=== PATIENT | female | born 1950 | race Caucasian/White ===

== ENCOUNTER 2018-03-13 13:17 | Inpatient (IN) | payer MEDICARE, OTHER ==
[~2018-03-13] VITALS: Ht 165.1 cm; Wt 50.6 kg
[2018-03-13 14:28] LABS: Basophils # (auto) 0.1 uL; Basophils % (auto) 0.7 % (0.0-2.0); Eosinophils # (auto) 0.2 uL; Eosinophils % (auto) 1.4 % (0.0-7.0); Hematocrit 30.8 % (36.0-46.0); Hemoglobin 9.9 g/dL (12.2-16.2); Lymphocytes # (auto) 1.3 uL; Mean Corpuscular Hemoglobin 28.2 pg (28.0-32.0); Mean Corpuscular Hgb Conc. 32.3 g/dL (32.0-36.0); Mean Corpuscular Volume 87.4 fL (80.0-100.0); Monocytes # (auto) 0.7 uL; Monocytes % (auto) 6.3 % (0.0-12.0); Neutrophils # (auto) 8.5 uL; Neutrophils % (auto) 79.6 % (37.0-80.0); Platelet Count (auto) 356 10^3/uL (140-450); Red Blood Cells 3.52 10^6/uL (4.0-5.20); Red Cell Distribution Width 16.5 % (11.8-14.3); White Blood Cell 10.7 10^3/uL (4.4-10.8)
[2018-03-13 14:58] LABS: Alanine Aminotransferase 9 U/L (13-56); Albumin 2.7 g/dL (3.4-5.0); Alkaline Phosphatase 96 U/L (45-117); Anion Gap 5 (5-15); Aspartate Aminotransferase 8 U/L (15-37); BUN/Creatinine Ratio 8.1; Bilirubin, Total 0.3 mg/dL (0.2-1.0); Blood Urea Nitrogen 25 mg/dL (7-18); Calcium 8.6 mg/dL (8.5-10.1); Carbon Dioxide 24 mmol/L (21-32); Chloride 106 mmol/L (98-107); GFR African American 19 mL/min; GFR Non-African American 16 mL/min; Glucose 104 mg/dL (74-106); Potassium 4.8 mmol/L (3.5-5.1); Sodium 135 mmol/L (136-145); Total Protein 6.8 g/dL (6.4-8.2)
[2018-03-13] MEDS ORDERED: ONDANSETRON HCL 4 MG/2 ML VIAL IV ONE ×2 (15:30→20:15)
[2018-03-13] MEDS ORDERED: MORPHINE SULFATE 4 MG/ML SYR/VIAL IV ONE ×2 (15:30→20:15)
[2018-03-13 15:55] LABS: Urine Bacteria NONE SEEN /hpf (None Seen); Urine Blood Negative /uL (Negative); Urine Specific Gravity 1.009 (1.001-1.035); Urine WBC 81 /hpf (0 - 5)
[2018-03-13] MEDS ORDERED: cefTRIAXone 1GM/10ml IVPUSH 10 ML IV ONE (16:00)
[2018-03-13] MEDS ORDERED: AZITHROMYCIN 500MG/ 250ML 250 ML IV ONE (16:00)
[2018-03-13] MEDS ORDERED: traZODone HCL 50 MG TAB PO ONE (23:00)
[2018-03-13] MEDS ORDERED: ACETAMINOPHEN 500 MG TAB PO PRN (23:00)
[2018-03-14] VITALS (7 sets, daily range): BP systolic 106–148; BP diastolic 60–86
[2018-03-14 05:51] LABS: Basophils # (auto) 0.1 uL; Basophils % (auto) 1.2 % (0.0-2.0); Eosinophils # (auto) 0.2 uL; Eosinophils % (auto) 2.4 % (0.0-7.0); Hematocrit 26.9 % (36.0-46.0); Lymphocytes # (auto) 1.1 uL; Mean Corpuscular Hemoglobin 29.5 pg (28.0-32.0); Mean Corpuscular Hgb Conc. 33.4 g/dL (32.0-36.0); Mean Corpuscular Volume 88.4 fL (80.0-100.0); Monocytes # (auto) 0.6 uL; Monocytes % (auto) 8.3 % (0.0-12.0); Neutrophils # (auto) 5.6 uL; Neutrophils % (auto) 74.1 % (37.0-80.0); Platelet Count (auto) 305 10^3/uL (140-450); Red Blood Cells 3.05 10^6/uL (4.0-5.20); Red Cell Distribution Width 16.3 % (11.8-14.3); White Blood Cell 7.6 10^3/uL (4.4-10.8)
[2018-03-14] MEDS: LEVOTHYROXINE SODIUM 25 MCG TAB PO SCH (06:29)
[2018-03-14 06:57] LABS: BUN/Creatinine Ratio 7.2; Calcium 8.6 mg/dL (8.5-10.1); Potassium 4.4 mmol/L (3.5-5.1)
[2018-03-14] MEDS ORDERED: HYDROcodone-ACET 5/325MG TAB PO PRN (08:30)
[2018-03-14] MEDS: FAMOTIDINE 20 MG TAB PO SCH (08:49)
[2018-03-14] MEDS: CITALOPRAM HYDROBR 20 MG TAB PO SCH (08:50)
[2018-03-14] MEDS ORDERED: PNEUMOCOCCAL VACC POLYS 25 MCG/0.5 ML VIAL IM ONE (10:00)
[2018-03-14] MEDS ORDERED: OME20GT PO ×2 (11:54)
[2018-03-14] MEDS ORDERED: FURO40TA4 PO ×2 (11:54)
[2018-03-14] MEDS ORDERED: BIS10RS PR ×2 (11:54)
[2018-03-14] MEDS ORDERED: CITA-77 PO ×2 (11:54)
[2018-03-14] MEDS ORDERED: TRAZ150T79 PO ×2 (11:54)
[2018-03-14] MEDS ORDERED: CLON0.1T PO ×2 (11:54)
[2018-03-14] MEDS ORDERED: METO25TA5 PO ×2 (11:54)
[2018-03-14] MEDS ORDERED: AML5T PO ×2 (11:54)
[2018-03-14] MEDS ORDERED: POTA20TA53 PO ×2 (11:54)
[2018-03-14] MEDS ORDERED: CALC667C5 PO ×2 (11:54)
[2018-03-14] MEDS ORDERED: CHOL20007 PO ×2 (11:54)
[2018-03-14] MEDS ORDERED: ONDA4TAB5 PO ×2 (11:54)
[2018-03-14] MEDS ORDERED: LEVO25TA6 PO ×2 (11:54)
[2018-03-14] MEDS ORDERED: ROPI0.5T PO ×2 (11:54)
[2018-03-14] MEDS ORDERED: ACET-1304 PO ×2 (11:54)
[2018-03-14 12:03] LABS: % Iron Saturation 7.7 % (15-50)
[2018-03-14] MEDS: MORPHINE SULFATE 4 MG/ML SYR/VIAL IV PRN (13:34)
[2018-03-14] MEDS: AZITHROMYCIN 500MG/ 250ML 250 ML IV SCH (15:54)
[2018-03-14] MEDS: cefTRIAXone 1GM/10ml IVPUSH 10 ML IV SCH (15:54)
[2018-03-14] MEDS: FERROUS SULFATE 325 MG TAB PO SCH (17:09)
[2018-03-14] MEDS: traZODone HCL 50 MG TAB PO SCH (21:01)
[2018-03-14] MEDS ORDERED: ROPINIROLE 1 MG PO SCH (22:00)
[2018-03-15] MEDS: MORPHINE SULFATE 4 MG/ML SYR/VIAL IV PRN ×3 (02:26→15:00)
[2018-03-15 05:19] VITALS: BP 132/72
[2018-03-15 05:57] LABS: Basophils # (auto) 0.1 uL; Eosinophils # (auto) 0.2 uL; Eosinophils % (auto) 2.5 % (0.0-7.0); Hematocrit 27.3 % (36.0-46.0); Hemoglobin 9.1 g/dL (12.2-16.2); Lymphocytes % (auto) 14.5 % (10.0-50.0); Mean Corpuscular Hemoglobin 29.6 pg (28.0-32.0); Mean Corpuscular Hgb Conc. 33.5 g/dL (32.0-36.0); Mean Corpuscular Volume 88.2 fL (80.0-100.0); Monocytes # (auto) 0.6 uL; Monocytes % (auto) 8.8 % (0.0-12.0); Neutrophils # (auto) 4.9 uL; Neutrophils % (auto) 73.2 % (37.0-80.0); Nucleated Red Blood Cells % 0.1 %; Platelet Count (auto) 331 10^3/uL (140-450); Red Blood Cells 3.09 10^6/uL (4.0-5.20); Red Cell Distribution Width 16.9 % (11.8-14.3); White Blood Cell 6.7 10^3/uL (4.4-10.8)
[2018-03-15] MEDS: LEVOTHYROXINE SODIUM 25 MCG TAB PO SCH (06:19)
[2018-03-15 06:34] LABS: Albumin 2.5 g/dL (3.4-5.0); BUN/Creatinine Ratio 6.8; Bilirubin, Total 0.3 mg/dL (0.2-1.0); Calcium 8.6 mg/dL (8.5-10.1); Magnesium 2.2 mg/dL (1.6-2.6); Potassium 4.4 mmol/L (3.5-5.1); Total Protein 6.6 g/dL (6.4-8.2)
[2018-03-15 08:00] VITALS: BP 131/73
[2018-03-15] MEDS: FERROUS SULFATE 325 MG TAB PO SCH ×2 (08:16→17:31)
[2018-03-15] MEDS: FAMOTIDINE 20 MG TAB PO SCH (09:12)
[2018-03-15] MEDS: CITALOPRAM HYDROBR 20 MG TAB PO SCH (09:12)
[2018-03-15 09:26] VITALS: BP 131/73
[2018-03-15 12:27] VITALS: BP 107/53
[2018-03-15] MEDS: ROPINIROLE 1 MG PO SCH (14:42)
[2018-03-15] MEDS: cefTRIAXone 1GM/10ml IVPUSH 10 ML IV SCH (15:54)
[2018-03-15] MEDS: AZITHROMYCIN 500MG/ 250ML 250 ML IV SCH (15:54)
[2018-03-15 16:46] VITALS: BP 111/61
[2018-03-15] MEDS: traZODone HCL 50 MG TAB PO SCH (21:50)
[2018-03-15] MEDS: traMADol HCL 50 MG TAB PO PRN (21:50)
[2018-03-15 22:00] VITALS: BP 132/72
[2018-03-16 04:47] VITALS: BP 103/50
[2018-03-16] MEDS: traMADol HCL 50 MG TAB PO PRN (05:10)
[2018-03-16] MEDS: MORPHINE SULFATE 4 MG/ML SYR/VIAL IV PRN ×2 (05:17→11:53)
[2018-03-16] MEDS: LEVOTHYROXINE SODIUM 25 MCG TAB PO SCH (06:49)
[2018-03-16 08:00] VITALS: BP 121/61
[2018-03-16] MEDS: FERROUS SULFATE 325 MG TAB PO SCH (08:40)
[2018-03-16 09:52] VITALS: BP 102/56
[2018-03-16] MEDS: CITALOPRAM HYDROBR 20 MG TAB PO SCH (11:24)
[2018-03-16] MEDS: FAMOTIDINE 20 MG TAB PO SCH (11:24)
[2018-03-16] MEDS: ROPINIROLE 1 MG PO SCH (11:53)
[2018-03-16] MEDS ORDERED: SODIUM FERR GLUC 62.5MG/5ML 125 MG in SODIUM CHL 0.9% 100 ML IV SCH (12:00)
[2018-03-16 13:02] VITALS: BP 121/61
[2018-03-16 13:13] VITALS: BP 121/61
[2018-03-17] MEDS ORDERED: SODIUM CHL 0.9% 1000 ML BAG XX ONE (09:00)
[2018-03-17] MEDS ORDERED: EPOETIN ALFA 10,000 UNIT/1 ML VIAL IV ONE (09:00)
== END 2018-03-16 17:30 | disposition home or self-care (01) | DRG 682 ==
LOC: ER 13:17 → OVERFLOW 13:18 → WEST WING 23:20
PROVIDERS: ADMIT Nurse Practitioner Family; ATTEND Internal Medicine
DX: N17.9 Acute kidney failure, unspecified (principal); G93.41 Metabolic encephalopathy; J18.1 Lobar pneumonia, unspecified organism; N30.00 Acute cystitis without hematuria; E44.0 Moderate protein-calorie malnutrition; I12.0 Hypertensive chronic kidney disease with stage 5 chronic kidney disease or end stage renal disease; F11.20 Opioid dependence, uncomplicated; Z68.1 Body mass index [BMI] 19.9 or less, adult; N18.6 End stage renal disease; D50.9 Iron deficiency anemia, unspecified; G43.909 Migraine, unspecified, not intractable, without status migrainosus; D63.1 Anemia in chronic kidney disease; G89.29 Other chronic pain; Z88.8 Allergy status to other drugs, medicaments and biological substances; Z99.2 Dependence on renal dialysis; Z91.018 Allergy to other foods; Z82.49 Family history of ischemic heart disease and other diseases of the circulatory system; Z87.891 Personal history of nicotine dependence; Z98.1 Arthrodesis status; Z87.01 Personal history of pneumonia (recurrent); Z23 Encounter for immunization
CPT/HCPCS: 36415; 70450; 71045; 71250; 74176; 76775; 80048; 80053; 81001; 82306; 82728; 83540; 83550; 83605; 83735; 83970; 84100; 84443; 84484; 85025; 86850; 86900; 86901; 87040; 87081; 87086; 93005; 94761; 96365; 96366; 96375; 96376; J0696; J2405

== ENCOUNTER 2018-03-18 01:21 | Emergency (ER) | payer OTHER ==
[~2018-03-18] VITALS: Ht 154.9 cm; Wt 53.5 kg
[~2018-03-18 01:21] MED LIST: ACET-1304 PO; AML5T PO; BIS10RS PR; CALC667C5 PO; CHOL20007 PO; CITA-77 PO; CLON0.1T PO; FURO40TA4 PO; LEVO25TA6 PO; METO25TA5 PO; OME20GT PO; ONDA4TAB5 PO; POTA20TA53 PO; ROPI0.5T PO; TRAZ150T79 PO
[2018-03-18] MEDS ORDERED: ACETAMINOPHEN 325 MG TAB PO ONE (05:00)
[2018-03-18 06:05] LABS: Urine Bacteria FEW /hpf (None Seen); Urine Blood TRACE /uL (Negative); Urine Specific Gravity 1.009 (1.001-1.035); Urine WBC 69 /hpf (0 - 5)
[2018-03-18 08:59] VITALS: BP 143/74
== END 2018-03-18 09:01 | disposition home or self-care (01) ==
LOC: ER 01:21
DX: N39.0 Urinary tract infection, site not specified (principal); I12.0 Hypertensive chronic kidney disease with stage 5 chronic kidney disease or end stage renal disease; N18.6 End stage renal disease; Z88.6 Allergy status to analgesic agent; Z79.899 Other long term (current) drug therapy
CPT/HCPCS: 70490; 71045; 81001

== ENCOUNTER 2018-05-12 10:10 | Emergency (ER) | payer OTHER ==
[~2018-05-12] VITALS: Ht 154.9 cm; Wt 51.7 kg
[~2018-05-12 10:10] MED LIST changes: -AML5T PO; -BIS10RS PR; -CALC667C5 PO; -CLON0.1T PO; +DOCU100T15 PO; -METO25TA5 PO; -OME20GT PO; -ONDA4TAB5 PO; +PANT40TA2 PO; -POTA20TA53 PO
[2018-05-12 12:54] LABS: Basophils # (auto) 0.1 uL; Eosinophils # (auto) 0.2 uL; Monocytes # (auto) 0.8 uL
[2018-05-12 12:56] LABS: Basophils % (auto) 0.5 % (0.0-2.0); Eosinophils % (auto) 2.3 % (0.0-7.0); Hematocrit 32.1 % (36.0-46.0); Hemoglobin 10.5 g/dL (12.2-16.2); Lymphocytes # (auto) 1.3 uL; Mean Corpuscular Hemoglobin 29.9 pg (28.0-32.0); Mean Corpuscular Hgb Conc. 32.6 g/dL (32.0-36.0); Mean Corpuscular Volume 91.5 fL (80.0-100.0); Monocytes % (auto) 7.2 % (0.0-12.0); Neutrophils # (auto) 8.4 uL; Nucleated Red Blood Cells % 0.1 %; Platelet Count (auto) 571 10^3/uL (140-450); Red Blood Cells 3.51 10^6/uL (4.0-5.20); Red Cell Distribution Width 16.7 % (11.8-14.3); White Blood Cell 10.8 10^3/uL (4.4-10.8)
[2018-05-12 13:09] LABS: Urine Bacteria FEW /hpf (None Seen); Urine Blood Negative /uL (Negative); Urine Specific Gravity 1.006 (1.001-1.035); Urine WBC 10 /hpf (0 - 5)
[2018-05-12 13:11] LABS: Alanine Aminotransferase 6 U/L (13-56); Albumin 2.9 g/dL (3.4-5.0); Anion Gap 10 (5-15); Aspartate Aminotransferase 5 U/L (15-37); BUN/Creatinine Ratio 11.4; Blood Urea Nitrogen 23 mg/dL (7-18); Calcium 9.1 mg/dL (8.5-10.1); Carbon Dioxide 25 mmol/L (21-32); Chloride 100 mmol/L (98-107); GFR African American 32 mL/min; GFR Non-African American 26 mL/min; Glucose 110 mg/dL (74-106); Potassium 3.8 mmol/L (3.5-5.1); Sodium 135 mmol/L (136-145)
[2018-05-12 13:16] LABS: Alkaline Phosphatase 89 U/L (45-117); Bilirubin, Total 0.4 mg/dL (0.2-1.0); Total Protein 7.9 g/dL (6.4-8.2)
[2018-05-12 13:28] VITALS: BP 127/74
== END 2018-05-12 15:09 | disposition home or self-care (01) ==
LOC: ER 10:12
DX: R07.89 Other chest pain (principal); N39.0 Urinary tract infection, site not specified; I12.9 Hypertensive chronic kidney disease with stage 1 through stage 4 chronic kidney disease, or unspecified chronic kidney disease; N18.3 Chronic kidney disease, stage 3 (moderate); E07.9 Disorder of thyroid, unspecified; Z88.6 Allergy status to analgesic agent; Z79.899 Other long term (current) drug therapy
CPT/HCPCS: 36415; 71046; 80053; 81001; 84484; 85025; 93005

== ENCOUNTER 2022-04-20 09:24 | Inpatient (IN) | payer OTHER ==
[~2022-04-20] VITALS: Ht 154.9 cm; Wt 53.8 kg
[~2022-04-20 09:24] MED LIST changes: -ROPI0.5T PO; +ROPI0.5T16 PO; -TRAZ150T79 PO; +TRAZ1TAB12 PO
[2022-04-20 13:42] LABS: Hematocrit 37.7 % (36.0-46.0); Hemoglobin 12.6 g/dL (12.2-16.2); Mean Corpuscular Hemoglobin 32.4 pg (28.0-32.0); Mean Corpuscular Hgb Conc. 33.3 g/dL (32.0-36.0); Mean Corpuscular Volume 97.2 fL (80.0-100.0); Red Blood Cells 3.88 10^6/uL (4.0-5.20); Red Cell Distribution Width 13.5 % (11.8-14.3); White Blood Cell 9.5 10^3/uL (4.4-10.8)
[2022-04-20 13:46] LABS: Basophils % (manual) 0 (0.0-2.0); Blast Cells 0; Myelocytes % 0; Promyelocytes % 0; Reactive Lymphocytes 0
[2022-04-20 14:20] LABS: Albumin 2.7 g/dL (3.4-5.0); Bilirubin, Total 0.5 mg/dL (0.2-1.0); Calcium 9.8 mg/dL (8.5-10.1); Potassium 3.7 mmol/L (3.5-5.1); Total Protein 6.1 g/dL (6.4-8.2)
[2022-04-20] MEDS ORDERED: SODIUM CHLORIDE 0.9% 1,000 ML IV ONE (14:45)
[2022-04-20] MEDS ORDERED: ACETAMINOPHEN 500 MG TAB PO ONE (14:45)
[2022-04-20] MEDS ORDERED: levoFLOXacin 750MG 150 ML IV ONE (14:45)
[2022-04-20 15:12] LABS: Band Neutrophils % (manual) 6; Eosinophils % (manual) 5 (0-7); Lymphocytes % (manual) 12 (10.0-50.0); Metamyelocytes % 9; Monocytes % (manual) 6 (0-12)
[2022-04-20] MEDS ORDERED: PANTOPRAZOLE 40 MG/10 ML VIAL INJ IV ONE (18:45)
[2022-04-20] MEDS ORDERED: ALBUTEROL SULF 2.5 MG/0.5ML(0.5%) NEB SOLN NEB PRN (18:45)
[2022-04-20] MEDS ORDERED: DOCUSATE SOD 100 MG CAP PO PRN (18:45)
[2022-04-20] MEDS ORDERED: ONDANSETRON HCL 4 MG/2 ML VIAL IV PRN (18:45)
[2022-04-20 20:18] VITALS: BP 128/67
[2022-04-20] MEDS: SODIUM CHLORIDE 0.9% 1,000 ML IV SCH (21:41)
[2022-04-20] MEDS: cefTRIAXone 1GM/50ML D5W 50 ML IV SCH (21:48)
[2022-04-20] MEDS: ACETAMINOPHEN 325 MG TAB PO PRN (21:49)
[2022-04-20] MEDS: AZITHROMYCIN 500MG/ 250ML 250 ML IV SCH ×2 (22:55→23:04)
[2022-04-20 23:26] VITALS: BP 102/61
[2022-04-20 23:43] VITALS: BP 102/61
[2022-04-21] MEDS: ACETAMINOPHEN 325 MG TAB PO PRN ×2 (01:03→15:51)
[2022-04-21 05:00] VITALS: BP 118/64
[2022-04-21 06:41] LABS: Hematocrit 35.5 % (36.0-46.0); Hemoglobin 11.8 g/dL (12.2-16.2); Mean Corpuscular Hemoglobin 31.7 pg (28.0-32.0); Mean Corpuscular Hgb Conc. 33.2 g/dL (32.0-36.0); Mean Corpuscular Volume 95.3 fL (80.0-100.0); Red Blood Cells 3.73 10^6/uL (4.0-5.20); Red Cell Distribution Width 13.6 % (11.8-14.3); White Blood Cell 11.4 10^3/uL (4.4-10.8)
[2022-04-21 06:52] LABS: Basophils % (manual) 0 (0.0-2.0); Blast Cells 0; Promyelocytes % 0
[2022-04-21 07:07] LABS: Albumin 2.4 g/dL (3.4-5.0); Calcium 8.8 mg/dL (8.5-10.1); Potassium 3.5 mmol/L (3.5-5.1)
[2022-04-21 07:09] LABS: BUN/Creatinine Ratio 22.5; Bilirubin, Total 0.4 mg/dL (0.2-1.0); Total Protein 5.4 g/dL (6.4-8.2)
[2022-04-21 08:30] VITALS: BP 108/68
[2022-04-21 09:28] LABS: Band Neutrophils % (manual) 6; Eosinophils % (manual) 1 (0-7); Lymphocytes % (manual) 8 (10.0-50.0); Monocytes % (manual) 9 (0-12); Reactive Lymphocytes 3
[2022-04-21] MEDS: ENOXAPARIN SOD 40 MG/0.4 ML SYRINGE SC SCH (09:29)
[2022-04-21] MEDS: cefTRIAXone 1GM/50ML D5W 50 ML IV SCH (09:30)
[2022-04-21 09:35] LABS: Metamyelocytes % 8; Myelocytes % 3
[2022-04-21] MEDS ORDERED: PANTOPRAZOLE 40 MG/10 ML VIAL INJ IV SCH (10:00)
[2022-04-21 12:30] VITALS: BP 124/61
[2022-04-21] MEDS ORDERED: ACETAMINOPHEN 325 MG TAB PO PRN (15:45)
[2022-04-21] MEDS: SODIUM CHLORIDE 0.9% 1,000 ML IV SCH (18:33)
[2022-04-21 20:26] LABS: Urine Bacteria FEW /hpf (None Seen); Urine Blood Negative /uL (Negative); Urine Specific Gravity 1.008 (1.001-1.035); Urine WBC 6 /hpf (0 - 5)
[2022-04-21] MEDS: AZITHROMYCIN 500MG/ 250ML 250 ML IV SCH (21:19)
[2022-04-21] MEDS ORDERED: CITALOPRAM HYDROBR 20 MG TAB PO SCH (22:00)
[2022-04-21] MEDS ORDERED: SENNA 8.6 MG TAB PO SCH (22:00)
[2022-04-21] MEDS ORDERED: traZODone HCL 50 MG TAB PO SCH (22:00)
[2022-04-21] MEDS ORDERED: ROPINIROLE HYDROCHLORIDE 1 MG PO SCH (22:00)
[2022-04-22 06:32] VITALS: BP 134/72
[2022-04-22] MEDS ORDERED: LEVOTHYROXINE SODIUM 25 MCG TAB PO SCH (07:00)
[2022-04-22 09:15] VITALS: BP 159/79
[2022-04-22] MEDS: SODIUM CHLORIDE 0.9% 1,000 ML IV SCH (09:37)
[2022-04-22] MEDS: cefTRIAXone 1GM/50ML D5W 50 ML IV SCH (09:46)
[2022-04-22] MEDS: ENOXAPARIN SOD 40 MG/0.4 ML SYRINGE SC SCH (09:46)
[2022-04-22] MEDS ORDERED: PANTOPRAZOLE 40 MG TAB PO SCH (10:00)
[2022-04-22] MEDS ORDERED: PRED20TA2 PO (12:56)
[2022-04-22] MEDS ORDERED: AZIT500T66 PO (12:56)
[2022-04-22 13:41] VITALS: BP 124/60
== END 2022-04-22 16:56 | disposition home health service (06) | DRG 189 ==
LOC: ER 09:24 → OVERFLOW 18:37 → WEST WING 22:18
PROVIDERS: ADMIT Nurse Practitioner Family; ATTEND Hospitalist
DX: J96.01 Acute respiratory failure with hypoxia (principal); J44.1 Chronic obstructive pulmonary disease with (acute) exacerbation; N18.9 Chronic kidney disease, unspecified; D64.9 Anemia, unspecified; J20.9 Acute bronchitis, unspecified; Z20.822 Contact with and (suspected) exposure to COVID-19; I12.9 Hypertensive chronic kidney disease with stage 1 through stage 4 chronic kidney disease, or unspecified chronic kidney disease; Z82.49 Family history of ischemic heart disease and other diseases of the circulatory system; Z88.8 Allergy status to other drugs, medicaments and biological substances
CPT/HCPCS: 36415; 71046; 80053; 81001; 83605; 84484; 85007; 85027; 85379; 87040; 87426; 87804; 93005; 96361; 96365; 96367; 96375; 97163; C9113; G0378; J0696; J1956